=== PATIENT | male | born 1960 | race Hispanic/Latino ===

== ENCOUNTER 2017-01-01 15:44 | Emergency (ER) | payer OTHER ==
[~2017-01-01] VITALS: Ht 167.6 cm; Wt 81.6 kg
[2017-01-01 15:54] VITALS: BP 122/85
--- NOTE | 2017-01-01 16:47 | ED GENERAL ADULT ---
See Addendum History of Present Illness General Chief Complaint: General Adult Stated Complaint: SIB MD FOR HIGH BP, FLU LIKE SYMTOMS Source: patient Exam Limitations: no limitations Vital Signs & Intake/Output Vital Signs & Intake/Output Vital Signs Date Time Temp Pulse Resp B/P Pulse O2 O2 Flow FiO2 Ox Delivery Rate 01/01 2010 Room Air 01/01 1554 98.7 114 18 122/85 97 Room Air Allergies Coded Allergies: Penicillins (HIVES 01/01/17) adhesive (BLISTERS 01/01/17) azithromycin (HIVES 01/01/17) Uncoded Allergies: COLOR ADDITIVE (HIVES 01/01/17) Reconcile Medications Ergocalciferol (Vitamin D2) (Vitamin D2) 50,000 UNIT CAPSULE 1 CAP PO QSUN SUPPLEMENT (Reported) Indapamide 1.25 MG TABLET 1 TAB PO DAILY BP (Reported) Oseltamivir Phosphate (Tamiflu) 75 MG CAPSULE 1 CAP PO BID influenza Potassium Chloride 10 MEQ TABLET.ER 1 TAB PO DAILY SUPPLEMENT (Reported) Ubiquinol 100 MG CAPSULE 1 CAP PO DAILY SUPPLEMENT (Reported) Triage Note: REPORTS DIARRHEA AND VOMITING SINCE LAST NIGHT. ALSO REPORTS HIGH FEVERS OF 103 AT HOME FOR HE TOOK TYLENOL WITH + EFFECT. DENIED COUGH OR SORE THROAT. Triage Nurses Notes Reviewed? yes Onset: Abrupt Duration: day(s): Timing: recent history HPI: 01/01/16 5 PM This is a 56-year-old male presents to the emergency department with vomiting and diarrhea. The patient states he was in his usual state of health until approximately 3 days ago when he felt developed abdominal cramps, vomiting and diarrhea. He says primary care doctor today and actually had elevated blood pressure he was referred for evaluation. He has no significant past medical history other than hypertension. No significant past surgical history. He does not drink or smoke. The onset of the symptoms were abrupt, the duration was 3 days, the severity significant as his symptoms required to come to the emergency department for care. He has associated vomiting and diarrhea. On physical exam his abdomen is soft and nontender He also admits to cough and rhinorrhea He did have upper respiratory tract symptoms over the past week. His flu swab was positive Past History Travel History Traveled to [place] past 21 day No Medical History Any Pertinent Medical History? see below for history Cardiovascular: hypertension Surgical History Surgical History: cholecystectomy Psychosocial History What is your primary language [place] Tobacco Use: Never used Family History Hx Contributory? No Review of Systems Review of Systems Constitutional: Reports: chills. EENTM: Reports: nasal congestion. Denies: visual changes. Respiratory: Reports: cough. Cardiovascular: Denies: chest pain. GI: Reports: diarrhea, vomiting. Genitourinary: Reports: no symptoms. Musculoskeletal: Reports: no symptoms. Skin: Denies: rash. Hematologic/Endocrine: Reports: no symptoms. Physical Exam Physical Exam General Appearance: alert, awake, anxious, mild distress Head: atraumatic, normal appearance Eyes: Bilateral: normal appearance, PERRL, EOMI. Ears, Nose, Throat: normal pharynx, normal ENT inspection Neck: normal inspection, supple Respiratory: normal breath sounds, chest non-tender, no respiratory distress Cardiovascular: regular rate/rhythm Peripheral Pulses: 4+ radial (R), 4+ radial (L) Gastrointestinal: soft, non-tender Back: normal range of motion Extremities: normal inspection, normal range of motion, no edema Neurologic/Psych: no motor/sensory deficits, awake, alert, oriented x 3 Skin: intact, normal color, warm/dry Core Measures ACS in differential dx? No CVA/TIA Diagnosis: No Severe Sepsis Present: No Septic Shock Present: No Progress Differential Diagnoses I considered the following diagnoses in my evaluation of the patient: Influenza, viral syndrome, gastroenteritis, appendicitis, diverticulitis] Plan of Care: Orders Procedure Date/time Status COMPREHENSIVE METABOLIC PANEL 01/01 1707 Complete CBC WITHOUT DIFFERENTIAL 01/01 1707 Complete RAPID VIRAL INFLUENZA A 01/01 1606 Complete Laboratory Tests 01/01/17 1750: Anion Gap 14, Estimated GFR > 60, BUN/Creatinine Ratio 27.0 H, Glucose 123 H, Calcium 9.0, Total Bilirubin 1.1, AST 24, ALT 41, Alkaline Phosphatase 84, Total Protein 6.9, Albumin 4.0, Globulin 2.9, Albumin/Globulin Ratio 1.4, CBC w Diff NO MAN DIFF REQ, RBC 5.16, MCV 87.5, MCH 29.7, RDW 13.7, MPV 7.4, Gran % 93.8 H , Lymphocytes % 3.1 L, Monocytes % 2.7, Eosinophils % 0.3, Basophils % 0.1, Absolute Granulocytes 10.8 H, Absolute Lymphocytes 0.4 L, Absolute Monocytes 0.3, Absolute Eosinophils 0, Absolute Basophils 0, PUBS MCHC 33.9 Initial ED EKG: none Departure Departure Disposition: HOME OR SELF CARE Condition: Stable Clinical Impression Primary Impression: Influenza Referrals: VIK BAUTISTA MD (PCP/Family) Departure Forms: Customer Survey General Discharge Information Prescriptions: Current Visit Scripts Oseltamivir Phosphate (Tamiflu) 1 CAP PO BID #10 CAP Admission Note Documentation of Exam: The patient was treated with IV fluids. Labs were unremarkable other than positive influenza test. He was discharged with Tamiflu and will follow-up with his doctor this week/ Critical Care Note Critical Care Note Critical Care Time: non-applicable
[2017-01-01 18:04] LABS: ABSOLUTE BASOPHIL COUNT 0 /CUMM (0.0-0.2); ABSOLUTE EOSINOPHIL COUNT 0 /CUMM (0.0-0.7); ABSOLUTE GRANULOCYTE CT 10.8 /CUMM (1.4-6.5); ABSOLUTE LYMPH COUNT 0.4 /CUMM (1.2-3.4); ABSOLUTE MONOCYTE COUNT 0.3 /CUMM (0.10-0.60); BASOPHIL % 0.1 % (0.0-2.0); EOSINOPHIL % 0.3 % (0-5); HEMATOCRIT 45.1 % (42-52); MEAN CORPUSCULAR HGB 29.7 PG (27.0-31.0); MEAN CORPUSCULAR HGB CONC 33.9 G/DL (33.0-37.0); MEAN CORPUSCULAR VOLUME 87.5 FL (80.0-94.0); MEAN PLATELET VOLUME 7.4 FL (7.4-10.4); PLATELET COUNT 263 /CUMM (130-400); RBC DISTRIBUTION WIDTH 13.7 % (11.5-14.5); RED BLOOD CELL CT 5.16 /CUMM (4.70-6.10); WHITE BLOOD CELL COUNT 11.6 /CUMM (4.8-10.8)
[2017-01-01 18:06] LABS: GRANULOCYTE % 93.8 % (42.2-75.2)
[2017-01-01] MEDS ORDERED: VITAMIN D250000 UNIT PO (19:07)
[2017-01-01] MEDS ORDERED: INDAPAMIDE1.25 M1 PO (19:07)
[2017-01-01] MEDS ORDERED: POTASSIUM CHLO10 ME4 PO (19:07)
[2017-01-01] MEDS ORDERED: UBIQUINOL100 MG PO (19:08)
[2017-01-01] MEDS ORDERED: TAMIFLU75 M1 PO (19:55)
== END 2017-01-01 20:19 ==
LOC: ERH 15:44
PROVIDERS: Emergency Medicine
DX: J11.1 Influenza due to unidentified influenza virus with other respiratory manifestations (principal)
CPT/HCPCS: 87804; 87804-59